=== PATIENT | male | born 1960 | race Caucasian/White ===

== ENCOUNTER 2023-12-26 08:08 | Observation (INO) ==
[~2023-12-26 08:08] MED LIST: Buffered Lidocaine 1% SYRIN 1 ml INTRADERM ONE; Lactated Ringers 1000 ml BAG 1,000 ML IV SCH; ROPIVACAINE 5 MG/ML 30 ML BTL (0.5%) ONE
[2023-12-26] MEDS ORDERED: ceFAZolin 1 GM in Dextrose 1 GM/50 ML BAG ONE (08:30)
[2023-12-26] MEDS ORDERED: Tranexamic Acid 1 GM/100ML BAG 2,000 MG/200 ML BAG IV ONE (08:30)
[2023-12-26] MEDS ORDERED: ceFAZolin 2 GM PREMIX 2 GM/50 ML BAG ONE (08:30)
[2023-12-26 08:57] LABS: Rapid COVID-19 Molecular Undetected (Undetected)
[2023-12-26] MEDS ORDERED: Lidocaine 2% PF 5 ML VIAL ONE (09:08)
[2023-12-26] MEDS ORDERED: Midazolam 2 mg/2 ml VIAL 1 mg/ml 2 ml VIAL (2 mg) ONE (09:09)
[2023-12-26] MEDS ORDERED: Acetaminophen IV 1 GM/100ML 1,000 MG/100 ML BAG IV ONE ×2 (09:16→12:05)
[2023-12-26] MEDS ORDERED: Acetaminophen IV 1 GM/100ML 1,000 MG/100 ML BAG IV PRN (10:03)
[2023-12-26] MEDS ORDERED: Naloxone 0.4 mg VIAL 0.4 mg/ml 1 ml VIAL IV PRN (10:03)
[2023-12-26] MEDS ORDERED: HYDROmorphone 1 MG/1 ML SYRINGE IV PRN (10:03)
[2023-12-26] MEDS ORDERED: Ondansetron 4 mg VIAL 2 MG/ML 2 ml VIAL IV PRN ×2 (10:03→13:50)
[2023-12-26] MEDS ORDERED: fentaNYL 100 mcg/2 ml 50 MCG/ML VIAL IV PRN (10:03)
[2023-12-26] MEDS ORDERED: ROPIVACAINE 5 MG/ML 30 ML BTL (0.5%) ONE (10:23)
[2023-12-26] MEDS ORDERED: Propofol 10 mg/ml 100 ML BTL 1,000 MG/100 ML BTL ONE (10:34)
[2023-12-26] MEDS ORDERED: Bupivacaine-MPF SPINAL 7.5 MG/ML - 2ML AMP ONE (11:01)
[2023-12-26] MEDS ORDERED: Dexamethasone IV 4 MG/ML VIAL 1 ml VIAL ONE (11:46)
[2023-12-26] MEDS ORDERED: Ondansetron 4 mg VIAL 2 MG/ML 2 ml VIAL ONE (11:46)
[2023-12-26] MEDS ORDERED: Ondansetron ODT 4 mg TAB 4 MG TAB PO PRN (13:50)
[2023-12-26] MEDS ORDERED: Magnesium Hydroxide LIQ 30 ML UDC PO PRN (13:50)
[2023-12-26] MEDS ORDERED: Lactulose 30 ml UDC PO PRN (13:50)
[2023-12-26] MEDS ORDERED: Scopolamine 1 mg/72hr PATCH TRANSDERM PRN (13:56)
[2023-12-26] MEDS ORDERED: Lactated Ringers 1000 ml BAG 1,000 ML IV SCH (14:00)
[2023-12-26] MEDS ORDERED: Dextrose 50% Syringe 50 ml 25 GM/50 ML SYRINGE IV PUSH PRN (17:36)
[2023-12-26] MEDS: ceFAZolin 1 GM ADVAN 1 GM in NS 0.9% 50 ML 50 ML IVPB SCH (19:27)
[2023-12-26] MEDS ORDERED: Multivitamins/Minerals TAB PO SCH (21:00)
[2023-12-26] MEDS: Magnesium Hydroxide LIQ 30 ML UDC PO SCH (21:16)
[2023-12-27] MEDS: ceFAZolin 1 GM ADVAN 1 GM in NS 0.9% 50 ML 50 ML IVPB SCH ×2 (03:14→11:09)
[2023-12-27] MEDS ORDERED: hydrALAZINE 20 mg/ml 1 ML Vial IV IV SLOW PU PRN (04:08)
[2023-12-27 06:15] LABS: Platelet Count 140 10^3/uL (150-450)
[2023-12-27 06:33] LABS: Creatinine, Serum 0.94 mg/dL (0.67-1.17); Potassium 3.4 mmol/L (3.5-5.0)
[2023-12-27 06:56] LABS: Hematocrit 39.6 % (38-53); Hemoglobin 13.5 g/dL (13.2-16.3); Mean Platelet Volume 9.6 fL (7.5-11.2)
[2023-12-27] MEDS: Magnesium Hydroxide LIQ 30 ML UDC PO SCH (08:06)
[2023-12-27] MEDS ORDERED: Potassium Chlor 20 meq TAB.ER PO ONE (08:29)
[2023-12-27] MEDS ORDERED: Vitamin THERAPEUTIC TAB PO SCH (09:00)
[2023-12-27] MEDS ORDERED: Aspirin EC 81 mg TAB.EC (enteric coated) PO SCH (09:00)
[2023-12-27 09:49] VITALS: BP 156/84
== END 2023-12-27 14:30 | disposition home or self-care (01) ==
LOC: OR 08:08 → SSU 08:08 → EDSTATUS 11:00
PROVIDERS: ADMIT Orthopaedic Surgery Adult Reconstructive Orthopaedic Surgery; ATTEND Orthopaedic Surgery Adult Reconstructive Orthopaedic Surgery